=== PATIENT | male | born 1960 | race Caucasian/White ===

== ENCOUNTER 2021-07-09 01:12 | Inpatient (IN) | payer OTHER ==
[2021-07-09] VITALS (12 sets, daily range): BP systolic 114–128; BP diastolic 74–86
[~2021-07-09] VITALS: Ht 172.7 cm; Wt 92.3 kg
[2021-07-09] MEDS ORDERED: ONDANSETRON 4MG INJ IV PRN (05:00)
[2021-07-09 05:18] LABS: BASOPHILS % (AUTO) 0.5 % (0.0-5.0); EOSINOPHILS % (AUTO) 1.9 % (0.0-8.0); HEMATOCRIT 46.6 % (42-54); LYMPHOCYTES % (AUTO) 25.2 % (21.0-51.0); MEAN CORPUSCULAR VOLUME 87.6 fL (79-99); MONOCYTES % (AUTO) 8.2 % (3.0-13.0); NEUTROPHILS % (AUTO) 63.9 % (40.0-77.0); PLATELET COUNT (AUTO) 343 K/uL (130-400); RED BLOOD CELL COUNT(AUTO) 5.32 MIL/uL (4.50-6.20); RED CELL DISTRIBUTION WIDTH 14.4 % (11.0-15.5); WHITE BLOOD COUNT (AUTO) 11.9 K/uL (4.8-10.8)
[2021-07-09 05:22] LABS: INR 1.09 (0.85-1.15); PROTHROMBIN TIME 11.8 SEC (9.6-11.6)
[2021-07-09 05:23] LABS: PARTIAL THROMBOPLASTIN TIME 24.9 SEC (26.3-35.5)
[2021-07-09 05:28] LABS: B-TYPE NATRIURETIC PEPTIDE 353 pg/mL (0-100)
[2021-07-09 05:33] LABS: HEMOGLOBIN A1C 7.4 % (4.0-6.0)
[2021-07-09 05:38] LABS: BILIRUBIN,TOTAL 0.5 mg/dL (0.2-1.0); CREATININE 1.2 mg/dL (0.5-1.5); PHOSPHORUS 4.4 mg/dL (2.5-4.9); POTASSIUM 4.3 mmol/L (3.5-5.1); TOTAL PROTEIN, SERUM 6.1 g/dL (6.0-8.3)
[2021-07-09] MEDS: FUROSEMIDE 20MG VIAL IV SCH (08:52)
[2021-07-09] MEDS: METOPROLOL TARTRATE 25 MG TAB PO SCH ×2 (08:52→19:43)
[2021-07-09] MEDS: FAMOTIDINE 20MG VIAL IV SCH ×2 (08:52→19:43)
[2021-07-09] MEDS: LISINOPRIL 2.5 MG TABLET PO SCH (08:53)
[2021-07-09] MEDS ORDERED: FENTANYL CITRATE PF 50 MCG/1 ML 2ML VIAL ONE (09:39)
[2021-07-09] MEDS ORDERED: LIDOCAINE HCL 400MG/20ML VIAL ONE (09:39)
[2021-07-09] MEDS ORDERED: IOHEXOL 350 MG/ML 100ML INFUS..BTL IV ONE (09:39)
[2021-07-09] MEDS ORDERED: MIDAZOLAM HCL 1 MG/ML 2ML VIAL ONE (09:39)
[2021-07-09] MEDS ORDERED: NITROGLYCERIN 2 MG VIAL IV ONE (09:39)
[2021-07-09] MEDS ORDERED: HEPARIN 10,000 UNIT/10ML (1,000 UNIT/ML) VIAL ONE (09:39)
[2021-07-09] MEDS ORDERED: IOHEXOL-350 50ML VIAL IV ONE (09:39)
[2021-07-09] MEDS ORDERED: CLOPIDOGREL 300MG TAB ONE (10:50)
[2021-07-09] MEDS ORDERED: ASPIRIN 325MG EC TAB PO ONE (10:50)
[2021-07-09] MEDS ORDERED: ACETAMINOPHEN WITH CODEINE 1 TAB TAB PO PRN (11:00)
[2021-07-09] MEDS: ACETAMINOPHEN WITH CODEINE 1 TAB TAB PO PRN (12:43)
[2021-07-09] MEDS: INSULIN HUMULIN R 100 UNIT/ML 3ML SQ SCH ×2 (15:39→19:44)
[2021-07-10 00:08] VITALS: BP 93/53
[2021-07-10 04:08] VITALS: BP 115/71
[2021-07-10 04:44] LABS: HEMATOCRIT 42.7 % (42-54); MEAN CORPUSCULAR HEMOGLOBIN 27.9 pg (27.0-33.0); MEAN CORPUSCULAR HGB CONC 32.6 g/dL (32.0-36.0); MEAN CORPUSCULAR VOLUME 85.7 fL (79-99); RED BLOOD CELL COUNT(AUTO) 4.98 MIL/uL (4.50-6.20); RED CELL DISTRIBUTION WIDTH 14.2 % (11.0-15.5); WHITE BLOOD COUNT (AUTO) 8.8 K/uL (4.8-10.8)
[2021-07-10 04:57] LABS: CREATININE 1.1 mg/dL (0.5-1.5); POTASSIUM 4.5 mmol/L (3.5-5.1)
[2021-07-10] MEDS: INSULIN HUMULIN R 100 UNIT/ML 3ML SQ SCH ×4 (06:59→21:00)
[2021-07-10] MEDS: ASPIRIN 81MG CHEW TAB PO SCH (07:43)
[2021-07-10] MEDS: FUROSEMIDE 20MG VIAL IV SCH ×3 (07:43→21:00)
[2021-07-10] MEDS: METOPROLOL TARTRATE 25 MG TAB PO SCH ×2 (07:43→21:00)
[2021-07-10] MEDS: CLOPIDOGREL 75MG TAB PO SCH (07:43)
[2021-07-10] MEDS: FAMOTIDINE 20MG VIAL IV SCH ×2 (07:43→21:00)
[2021-07-10] MEDS: PANTOPRAZOLE 40 MG TAB DR PO SCH (07:44)
[2021-07-10] MEDS: LISINOPRIL 2.5 MG TABLET PO SCH (07:44)
[2021-07-10 08:00] VITALS: BP 135/86
[2021-07-10] MEDS: AMIODARONE 200 MG TABLET PO SCH (08:41)
[2021-07-10 12:00] VITALS: BP 128/70
[2021-07-10 16:00] VITALS: BP 117/81
[2021-07-10] MEDS: ACETAMINOPHEN WITH CODEINE 1 TAB TAB PO PRN ×2 (16:25→21:52)
[2021-07-10 20:08] VITALS: BP 122/68
[2021-07-10] MEDS: ATORVASTATIN 40 MG TABLET PO SCH (21:00)
[2021-07-11 00:08] VITALS: BP 96/55
[2021-07-11 04:08] VITALS: BP 118/73
[2021-07-11 04:31] LABS: CREATININE 1.1 mg/dL (0.5-1.5); POTASSIUM 4.4 mmol/L (3.5-5.1)
[2021-07-11] MEDS: INSULIN HUMULIN R 100 UNIT/ML 3ML SQ SCH ×4 (06:34→21:27)
[2021-07-11 08:00] VITALS: BP 110/69
[2021-07-11] MEDS: FUROSEMIDE 20MG VIAL IV SCH ×2 (08:00→10:52)
[2021-07-11] MEDS ORDERED: FUROSEMIDE 20 MG TABLET PO SCH (09:00)
[2021-07-11] MEDS: ACETAMINOPHEN WITH CODEINE 1 TAB TAB PO PRN ×3 (09:16→20:30)
[2021-07-11] MEDS: ASPIRIN 81MG CHEW TAB PO SCH (10:47)
[2021-07-11] MEDS: CLOPIDOGREL 75MG TAB PO SCH (10:48)
[2021-07-11] MEDS: METOPROLOL TARTRATE 25 MG TAB PO SCH ×2 (10:48→20:22)
[2021-07-11] MEDS: FAMOTIDINE 20MG VIAL IV SCH ×2 (10:48→20:22)
[2021-07-11] MEDS: LISINOPRIL 2.5 MG TABLET PO SCH (10:48)
[2021-07-11] MEDS: PANTOPRAZOLE 40 MG TAB DR PO SCH (10:48)
[2021-07-11] MEDS: POTASSIUM CHLORIDE 10MEQ SR TAB PO SCH (10:48)
[2021-07-11] MEDS: AMIODARONE 200 MG TABLET PO SCH (10:54)
[2021-07-11 11:33] VITALS: BP 141/96
[2021-07-11] MEDS: FUROSEMIDE 20 MG TABLET PO SCH (12:20)
[2021-07-11 16:00] VITALS: BP 108/50
[2021-07-11] MEDS: ATORVASTATIN 40 MG TABLET PO SCH (20:22)
[2021-07-11 21:41] VITALS: BP 139/81
[2021-07-11 22:24] LABS: APPEARANCE,URINE Clear (CLEAR); BILIRUBIN,URINE Negative (NEGATIVE); COLOR,URINE Yellow (YELLOW); GLUCOSE, URINE (UA) 250 mg/dL (NEGATIVE); KETONES,URINE Negative (NEGATIVE); LEUKOCYTE ESTERASE ,URINE Negative (NEGATIVE); NITRATE,URINE Negative (NEGATIVE); OCCULT BLOOD,URINE Negative (NEGATIVE); PH,URINE 7.5 (5.0-8.0); PROTEIN,URINE POS 1+ mg/dL (NEGATIVE)
[2021-07-11 22:32] LABS: AMPHET/METH SCREEN,URINE NEGATIVE (NEGATIVE); BARBITURATE SCREEN, URINE NEGATIVE (NEGATIVE); BENZODIAZEPINES SCREEN,URINE NEGATIVE (NEGATIVE); CANNABINOID SCREEN,URINE NEGATIVE (NEGATIVE); COCAINE SCREEN,URINE NEGATIVE (NEGATIVE); OPIATE SCREEN,URINE POSITIVE (NEGATIVE); PHENCYCLIDINE SCREEN,URINE NEGATIVE (NEGATIVE)
[2021-07-11 22:59] LABS: BACTERIA,URINE None Seen /HPF (None Seen); RBC,URINE None Seen /HPF (0-1); SQUAMOUS EPITHELIAL CELL,UR Rare /HPF (0-2); WBC,URINE None Seen /HPF (0-1); YEAST,URINE BUDDING None Seen /HPF (None Seen)
[2021-07-12 01:00] VITALS: BP 128/82
[2021-07-12 05:20] VITALS: BP 124/71
[2021-07-12] MEDS: INSULIN HUMULIN R 100 UNIT/ML 3ML SQ SCH ×4 (06:04→19:47)
[2021-07-12 08:00] VITALS: BP 125/78
[2021-07-12] MEDS: AMIODARONE 200 MG TABLET PO SCH (08:35)
[2021-07-12] MEDS: PANTOPRAZOLE 40 MG TAB DR PO SCH (08:35)
[2021-07-12] MEDS: LISINOPRIL 2.5 MG TABLET PO SCH (08:36)
[2021-07-12] MEDS: ASPIRIN 81MG CHEW TAB PO SCH (08:36)
[2021-07-12] MEDS: FUROSEMIDE 20 MG TABLET PO SCH (08:37)
[2021-07-12] MEDS: POTASSIUM CHLORIDE 10MEQ SR TAB PO SCH (08:37)
[2021-07-12] MEDS: METOPROLOL TARTRATE 25 MG TAB PO SCH (08:37)
[2021-07-12] MEDS: FAMOTIDINE 20MG VIAL IV SCH ×2 (08:37→19:46)
[2021-07-12] MEDS: CLOPIDOGREL 75MG TAB PO SCH (08:37)
[2021-07-12 12:00] VITALS: BP 128/85
[2021-07-12] MEDS: ACETAMINOPHEN WITH CODEINE 1 TAB TAB PO PRN (15:54)
[2021-07-12 16:00] VITALS: BP 139/90
[2021-07-12] MEDS ORDERED: FURO20TA6 PO (18:42)
[2021-07-12] MEDS ORDERED: POTA10CA44 PO (18:42)
[2021-07-12] MEDS ORDERED: LISI2.5T13 PO (18:42)
[2021-07-12] MEDS ORDERED: ATOR40TA69 PO (18:42)
[2021-07-12] MEDS ORDERED: METO-408 PO (18:42)
[2021-07-12] MEDS ORDERED: CLOP75TA14 PO (18:42)
[2021-07-12] MEDS ORDERED: AMIO200T6 PO (18:49)
[2021-07-12] MEDS ORDERED: ASPI-1197 PO (18:49)
[2021-07-12] MEDS: ATORVASTATIN 40 MG TABLET PO SCH (19:46)
[2021-07-12 20:00] VITALS: BP 128/80
[2021-07-12] MEDS ORDERED: METOPROLOL SUCCINATE 50 MG TAB.SR.24H PO SCH (21:00)
== END 2021-07-12 20:11 | disposition home or self-care (01) | DRG 246 ==
LOC: 4CH 03:03
PROVIDERS: ADMIT Internal Medicine; ATTEND Internal Medicine
PROC: 027135Z Dilation of Coronary Artery, Two Arteries with Two Drug-eluting Intraluminal Devices, Percutaneous Approach (ICD-10-PCS; principal; 2021-07-09)
PROC: 4A023N8 Measurement of Cardiac Sampling and Pressure, Bilateral, Percutaneous Approach (ICD-10-PCS; 2021-07-09)
PROC: B2111ZZ Fluoroscopy of Multiple Coronary Arteries using Low Osmolar Contrast (ICD-10-PCS; 2021-07-09)
PROC: B2151ZZ Fluoroscopy of Left Heart using Low Osmolar Contrast (ICD-10-PCS; 2021-07-09)
PROC: B41F1ZZ Fluoroscopy of Right Lower Extremity Arteries using Low Osmolar Contrast (ICD-10-PCS; 2021-07-09)
DX: I25.110 Atherosclerotic heart disease of native coronary artery with unstable angina pectoris (principal); I50.43 Acute on chronic combined systolic (congestive) and diastolic (congestive) heart failure; I11.0 Hypertensive heart disease with heart failure; I48.91 Unspecified atrial fibrillation; Z20.822 Contact with and (suspected) exposure to COVID-19; E11.9 Type 2 diabetes mellitus without complications; E78.5 Hyperlipidemia, unspecified; I25.5 Ischemic cardiomyopathy; Z87.891 Personal history of nicotine dependence; Z79.899 Other long term (current) drug therapy; Z83.3 Family history of diabetes mellitus; Z80.9 Family history of malignant neoplasm, unspecified
CPT/HCPCS: 36415; 71045; 80048; 80053; 80061; 80305; 81001; 82948; 83036; 83735; 83880; 84100; 85025; 85027; 85610; 85730; 86850; 86900; 86901; 87635; 93005; 93458; 94760; 99156; 99157; C1769; C1887; C1894; C9600; G0378; J1644; J1815; J1940; J2250; J3010; J3490; Q9967

== ENCOUNTER 2022-02-19 06:06 | Day surgery (SDC) | payer OTHER ==
[2022-02-18 12:19] LABS: BASOPHILS % (AUTO) 0.6 % (0.0-5.0); EOSINOPHILS % (AUTO) 2.8 % (0.0-8.0); HEMATOCRIT 40.7 % (42-54); LYMPHOCYTES % (AUTO) 37.9 % (21.0-51.0); MEAN CORPUSCULAR HEMOGLOBIN 28.4 pg (27.0-33.0); MEAN CORPUSCULAR HGB CONC 34.2 g/dL (32.0-36.0); MEAN CORPUSCULAR VOLUME 83.1 fL (79-99); MONOCYTES % (AUTO) 6.4 % (3.0-13.0); NEUTROPHILS % (AUTO) 51.5 % (40.0-77.0); PLATELET COUNT (AUTO) 265 K/uL (130-400); RED CELL DISTRIBUTION WIDTH 13.3 % (11.0-15.5); WHITE BLOOD COUNT (AUTO) 8.8 K/uL (4.8-10.8)
[2022-02-18 12:27] LABS: INR 0.93 (0.85-1.15); PROTHROMBIN TIME 9.9 SEC (9.6-11.6)
[2022-02-18 12:28] LABS: PARTIAL THROMBOPLASTIN TIME 23.3 SEC (26.3-35.5)
[2022-02-18 12:34] LABS: CREATININE 1.1 mg/dL (0.5-1.5); POTASSIUM 4.9 mmol/L (3.5-5.1)
[2022-02-18 14:12] VITALS: BP 128/71
[2022-02-19] VITALS (10 sets, daily range): BP systolic 95–134; BP diastolic 57–80
[~2022-02-19] VITALS: Ht 172.7 cm; Wt 94.3 kg
[~2022-02-19 06:06] MED LIST: AMIO200T68 PO; ATOR40TA69 PO; CEFAZOLIN SODIUM 2 GM VIAL IV SCH; CLOP75TA32 PO; FURO40TA5 PO; INSU100I26 SQ; LISI10TA24 PO; METO-408 PO
[2022-02-19] MEDS ORDERED: 0.9%NACL 1000ML 1,000 ML IV ONE (07:34)
[2022-02-19] MEDS ORDERED: CEFAZOLIN SODIUM 1 GM VIAL ONE (08:54)
[2022-02-19] MEDS ORDERED: BUPIVACAINE/PF 0.25% 30ML VIAL IJ ONE (08:54)
[2022-02-19] MEDS ORDERED: LIDOCAINE HCL 1% MDV 50ML VIAL ONE (08:55)
[2022-02-19] MEDS ORDERED: MIDAZOLAM HCL 1 MG/ML 2ML VIAL ONE ×2 (08:55→09:24)
[2022-02-19] MEDS ORDERED: MEPERIDINE-PF 25 MG/ML SYG ONE ×3 (08:55→10:36)
[2022-02-19] MEDS ORDERED: IOHEXOL-350 50ML VIAL IV ONE (09:07)
[2022-02-19] MEDS ORDERED: THROMBIN-JMI 5000 UNIT/VIAL TP ONE (10:42)
[2022-02-19] MEDS ORDERED: TRAM50TA4 PO (10:53)
[2022-02-19] MEDS ORDERED: ACETAMINOPHEN WITH CODEINE 1 TAB TAB PO PRN (11:00)
== END 2022-02-19 15:13 | disposition home or self-care (01) ==
LOC: DAH 06:06
PROVIDERS: ATTEND Internal Medicine Cardiovascular Disease
DX: I50.42 Chronic combined systolic (congestive) and diastolic (congestive) heart failure (principal); I25.5 Ischemic cardiomyopathy; I44.7 Left bundle-branch block, unspecified; I25.10 Atherosclerotic heart disease of native coronary artery without angina pectoris; I48.0 Paroxysmal atrial fibrillation; E78.5 Hyperlipidemia, unspecified; Z95.5 Presence of coronary angioplasty implant and graft; Z82.49 Family history of ischemic heart disease and other diseases of the circulatory system; Z83.3 Family history of diabetes mellitus; Z87.891 Personal history of nicotine dependence; Z79.01 Long term (current) use of anticoagulants; Z79.899 Other long term (current) drug therapy
CPT/HCPCS: 33225; 33249; 36415; 71045; 80048; 82948; 85025; 85610; 85730; 93005; A4215; A4216; A4221; A4222; A4223 ×3; A4606; A4663; C1769; C1882; C1895; C1896; C1900; J0690; J2175 ×3; J2250 ×2; J3490 ×3; J7030; Q9967; 99156; 99157; J1644

== ENCOUNTER 2024-11-03 06:04 | Day surgery (SDC) | payer OTHER ==
[2024-11-02 09:48] VITALS: BP 154/89; PULSE 90; RESP 16; TEMP 97.8
--- NOTE | 2024-11-02 10:03 | NUR ---
PATIENT CANCELLED DUE TO NOT STOPPING ELIQUIS FOR 48HRS, SPOKE TO DR HOFFMAN PATIENT RESCHEDULED FOR TOMORROW. PATIENT AWARE
[2024-11-03] VITALS (12 sets, daily range): BP systolic 79–142; BP diastolic 44–81; PULSE 71–83; RESP 12–18; TEMP 97.1–97.7
[~2024-11-03] VITALS: Ht 172.7 cm; Wt 72.6 kg
[~2024-11-03 06:04] MED LIST changes: -CEFAZOLIN SODIUM 2 GM VIAL IV SCH; +TRAM50TA4 PO
[2024-11-03] MEDS ORDERED: proPOFol 10 MG/ML 20ML VIAL IV ONE (06:52)
--- NOTE | 2024-11-03 08:45 | NUR ---
Full and complete discharge instructions given to Patient and Family both verbally and in writing. All questions answered. Tolerating PO fluids well. Voiced understanding to GI procedure and follow up. PIV removed with catheter tip intact. W\C to POV with Family to home.
== END 2024-11-03 08:35 | disposition home or self-care (01) ==
LOC: DAH 06:04 → ENDO 06:04
PROVIDERS: ATTEND Internal Medicine Gastroenterology
DX: Z12.11 Encounter for screening for malignant neoplasm of colon (principal); I10 Essential (primary) hypertension; I25.10 Atherosclerotic heart disease of native coronary artery without angina pectoris; E11.9 Type 2 diabetes mellitus without complications; E66.9 Obesity, unspecified; Z79.4 Long term (current) use of insulin; Z79.01 Long term (current) use of anticoagulants; Z95.0 Presence of cardiac pacemaker; Z95.5 Presence of coronary angioplasty implant and graft; Z79.82 Long term (current) use of aspirin; Z79.899 Other long term (current) drug therapy
CPT/HCPCS: 82948 ×3; J2704; A4620; G0121; A4215 ×2; A4223; A4657; A7002; A4222; A4221; A4663; A4606; 45378; J3490